=== PATIENT | male | born 1965 | race Caucasian/White ===

== ENCOUNTER 2020-10-09 10:48 | Inpatient (IN) ==
[2020-10-09] MEDS ORDERED: *HR* Midazolam HCl 2 MG/2 ML VIAL ONE (10:51)
[2020-10-09] MEDS ORDERED: *HR* FentaNYL (PF) 100 MCG/2 ML VIAL ONE (10:51)
[2020-10-09] MEDS ORDERED: *HR* Ticagrelor 90 MG TABLET PO ONE (10:52)
[2020-10-09] MEDS ORDERED: ISOVUE-370 200 ML INFUS..BTL ONE ×2 (10:52→11:57)
[2020-10-09] MEDS ORDERED: Nitroglycerin 1,000 MCG/5 ML VIAL IV ONE (10:52)
[2020-10-09] MEDS ORDERED: *HR* Heparin 5,000 UNIT/ML VIAL IVP ONE ×2 (10:52→23:30)
[2020-10-09] MEDS ORDERED: 0.9 % Sodium Chloride 2,000 ML ONE (10:52)
[2020-10-09] MEDS ORDERED: *HR* Heparin 10,000 UNIT/10 ML VIAL ONE (10:52)
[2020-10-09] MEDS ORDERED: Heparin 1,000 UNITS/500 mL 500 ML ONE (10:52)
[2020-10-09] MEDS ORDERED: Ipratropium/Albuterol Neb 3 ML IH ONE (10:56)
[2020-10-09] MEDS ORDERED: Tirofiban 12.5 MG/250ML 12.5 MG/250 ML BAG ONE (10:59)
[2020-10-09 11:18] LABS: Basophils % 0.3 %; Platelet Count 109 K/mcL (140-400); Red Blood Count 6.55 M/mcL (4.19-5.50); Red Cell Distribution Width 14.7 % (11.5-14.5)
[2020-10-09 11:20] LABS: Eosinophils # 0.1 K/mcL (0.0-0.6); Eosinophils % 0.6 %; Hemoglobin 19.9 g/dL (12.9-16.9); Immature Granulocytes % 0.6 % (0-4); Immature Platelets 8.3 % (1.1-6.1); Lymphocytes # 2.2 K/mcL (0.6-4.6); Lymphocytes % 15.4 %; Mean Corpuscular HGB Conc 34.2 g/dL (31.6-35.5); Mean Corpuscular Hemoglobin 30.4 pg (28.0-33.3); Mean Corpuscular Volume 88.9 fL (83.0-100.0); Mean Platelet Volume 11.6 fL (9.4-12.4); Monocytes # 1.4 K/mcL (0.0-1.3); Monocytes % 9.9 %; Neutrophils # 10.6 K/mcL (1.6-8.9); Segmented Neutrophils % 73.2 %; White Blood Count 14.5 K/mcL (4.3-11.1)
[2020-10-09 11:23] LABS: Hematocrit 58.2 % (37.5-50.1)
[2020-10-09] MEDS: Tirofiban 12.5 MG/250ML 12.5 MG/250 ML BAG IVC SCH ×2 (11:30→21:35)
[2020-10-09 11:38] LABS: BUN/Creatinine Ratio 12 (6-26); Blood Urea Nitrogen 15 mg/dL (6-20); Calcium 9.6 mg/dL (8.6-10.3); Carbon Dioxide 27 mEq/L (23-29); Chloride 96 mEq/L (98-107); Glucose 173 mg/dL (70-105); Magnesium 1.7 mg/dL (1.6-2.6); Osmolality,Calculated 281 (280-300); Potassium 3.4 mEq/L (3.5-5.1); Sodium 133 mEq/L (136-145); Troponin I 12.99 ng/mL (< 0.04); eGFR For African Americans > 60 (> 60); eGFR For Non-African Americans 59 (> 60)
[2020-10-09] MEDS ORDERED: Furosemide 40 MG/4 ML VIAL ONE (11:54)
[2020-10-09] MEDS ORDERED: Perflutren Lipid Microsphere 1.3 ML in 0.9 % Sodium Chloride 8.7 ML IVP PRN (12:19)
[2020-10-09 15:49] LABS: Adenovirus Not Detected (Not Detect); Coronavirus 229E Not Detected (Not Detect); Coronavirus HKU1 Not Detected (Not Detect); Coronavirus NL63 Not Detected (Not Detect); Coronavirus OC43 Not Detected (Not Detect); Human Metapneumovirus Not Detected (Not Detect); Human Rhinovirus/Enterovirus Not Detected (Not Detect); Influenza A Subtype 2009 H1 Not Detected (Not Detect); Influenza B Not Detected (Not Detect); Parainfluenza Virus 1 Not Detected (Not Detect); Parainfluenza Virus 2 Not Detected (Not Detect); Parainfluenza Virus 3 Not Detected (Not Detect); Parainfluenza Virus 4 Not Detected (Not Detect); SARS-CoV-2 Not Detected (Not Detect)
[2020-10-09 15:50] LABS: Bordetella Pertussis Not Detected (Not Detect); Chlamydophila pneumoniae Not Detected (Not Detect); Mycoplasma pneumoniae Not Detected (Not Detect); Respiratory Syncytial Virus Not Detected (Not Detect)
[2020-10-09] MEDS ORDERED: Dextrose Gel 15 GM/37.5 ML TUBE PO PRN ×2 (16:49)
[2020-10-09] MEDS ORDERED: *HR* Dextrose 50 % in Water (Vial) 50 ML VIAL IVP PRN (16:49)
[2020-10-09] MEDS ORDERED: D5% in Water 1,000 ML IVC PRN (16:49)
[2020-10-09 18:44] LABS: INR 1.2; Prothrombin Time 13.6 Seconds (9.4-12.1)
[2020-10-09 19:25] LABS: Estimated Average Glucose 134 mg/dl; Hemoglobin A1C 6.3 %
[2020-10-09] MEDS: Insulin LISPRO 300 UNITS/3 ML VIAL SUBQ SCH (20:15)
[2020-10-09] MEDS: *HR* Ticagrelor 90 MG TABLET PO SCH (20:15)
[2020-10-09] MEDS: lisinopriL 20 MG TABLET PO SCH (20:15)
[2020-10-09] MEDS ORDERED: *HR* Heparin 5,000 UNIT/ML VIAL IVP PRN ×2 (23:30)
[2020-10-10 00:37] LABS: Basophils # 0.1 K/mcL (0.0-0.2); Basophils % 0.3 %; Eosinophils # 0.1 K/mcL (0.0-0.6); Eosinophils % 0.3 %; Hematocrit 55.6 % (37.5-50.1); Hemoglobin 18.5 g/dL (12.9-16.9); Immature Granulocytes % 0.5 % (0-4); Lymphocytes # 3.1 K/mcL (0.6-4.6); Mean Corpuscular HGB Conc 33.3 g/dL (31.6-35.5); Mean Corpuscular Hemoglobin 29.5 pg (28.0-33.3); Mean Corpuscular Volume 88.5 fL (83.0-100.0); Mean Platelet Volume 11.4 fL (9.4-12.4); Monocytes # 1.8 K/mcL (0.0-1.3); Monocytes % 9.6 %; Neutrophils # 13.4 K/mcL (1.6-8.9); Platelet Count 139 K/mcL (140-400); Red Blood Count 6.28 M/mcL (4.19-5.50); Red Cell Distribution Width 14.1 % (11.5-14.5); Segmented Neutrophils % 72.3 %; White Blood Count 18.5 K/mcL (4.3-11.1)
[2020-10-10 00:44] LABS: Heparin anti-factor XA UFH < 0.04 IU/mL (0.30-0.70)
[2020-10-10 00:45] LABS: INR 1.2; Prothrombin Time 13.5 Seconds (9.4-12.1)
[2020-10-10] MEDS: Heparin 25,000UNIT/250ML 1/2NS 25,000 UNIT/250 ML IV.SOLN IVC SCH ×2 (00:46→22:56)
[2020-10-10 00:48] LABS: BUN/Creatinine Ratio 14 (6-26); Blood Urea Nitrogen 16 mg/dL (6-20); Carbon Dioxide 23 mEq/L (23-29); Chloride 97 mEq/L (98-107); Glucose 144 mg/dL (70-105); Osmolality,Calculated 278 (280-300); Potassium 3.6 mEq/L (3.5-5.1); Sodium 132 mEq/L (136-145); eGFR For African Americans > 60 (> 60); eGFR For Non-African Americans > 60 (> 60)
[2020-10-10] MEDS ORDERED: Morphine Sulfate 2 MG/ML SYRINGE IVP PRN (02:47)
[2020-10-10] MEDS: Isosorbide MONOnitrate (24 HR) 30 MG TAB.ER.24H PO SCH (03:09)
[2020-10-10] MEDS: Colchicine 0.6 MG TABLET PO SCH ×2 (03:10→08:13)
[2020-10-10 07:40] LABS: BUN/Creatinine Ratio 16 (6-26); Blood Urea Nitrogen 19 mg/dL (6-20); Calcium 8.8 mg/dL (8.6-10.3); Carbon Dioxide 22 mEq/L (23-29); Chloride 97 mEq/L (98-107); Glucose 180 mg/dL (70-105); Osmolality,Calculated 275 (280-300); Sodium 129 mEq/L (136-145); Troponin I 14.83 ng/mL (< 0.04); eGFR For African Americans > 60 (> 60); eGFR For Non-African Americans > 60 (> 60)
[2020-10-10] MEDS: Aspirin 81 MG TAB.CHEW PO SCH (08:06)
[2020-10-10] MEDS: lisinopriL 20 MG TABLET PO SCH (08:07)
[2020-10-10] MEDS: *HR* Ticagrelor 90 MG TABLET PO SCH ×2 (08:07→19:42)
[2020-10-10] MEDS: Insulin LISPRO 300 UNITS/3 ML VIAL SUBQ SCH ×4 (08:10→19:41)
[2020-10-10] MEDS ORDERED: carvediloL 25 MG TABLET PO SCH (09:00)
[2020-10-10] MEDS ORDERED: Perflutren Lipid Microsphere 1.3 ML in 0.9 % Sodium Chloride 8.7 ML IVP PRN (09:40)
[2020-10-10] MEDS ORDERED: 0.9 % Sodium Chloride 250 ML IVC ONE ×2 (10:02→14:44)
[2020-10-10] MEDS ORDERED: Aspirin 325 MG TABLET PO ONE ×2 (10:20→18:30)
[2020-10-10] MEDS: Ipratropium Neb 0.5 MG NEBULIZER IH SCH ×2 (16:49→21:15)
[2020-10-10] MEDS ORDERED: carvediloL 6.25 MG TABLET PO SCH (17:00)
[2020-10-10] MEDS ORDERED: Colchicine 0.6 MG TABLET PO SCH (21:00)
[2020-10-11] MEDS: Ipratropium Neb 0.5 MG NEBULIZER IH SCH ×4 (03:55→21:49)
[2020-10-11 05:17] LABS: Basophils % 0.2 %; Eosinophils # 0.1 K/mcL (0.0-0.6); Eosinophils % 0.5 %; Hematocrit 50.5 % (37.5-50.1); Immature Granulocytes % 0.8 % (0-4); Lymphocytes # 1.9 K/mcL (0.6-4.6); Lymphocytes % 10.5 %; Mean Corpuscular HGB Conc 33.7 g/dL (31.6-35.5); Mean Corpuscular Hemoglobin 29.8 pg (28.0-33.3); Mean Corpuscular Volume 88.6 fL (83.0-100.0); Mean Platelet Volume 11.2 fL (9.4-12.4); Monocytes # 1.4 K/mcL (0.0-1.3); Monocytes % 7.5 %; Neutrophils # 14.8 K/mcL (1.6-8.9); Platelet Count 131 K/mcL (140-400); Red Cell Distribution Width 13.8 % (11.5-14.5); Segmented Neutrophils % 80.5 %; White Blood Count 18.3 K/mcL (4.3-11.1)
[2020-10-11 05:37] LABS: BUN/Creatinine Ratio 19 (6-26); Blood Urea Nitrogen 20 mg/dL (6-20); Calcium 8.8 mg/dL (8.6-10.3); Carbon Dioxide 22 mEq/L (23-29); Chloride 98 mEq/L (98-107); Glucose 148 mg/dL (70-105); Osmolality,Calculated 279 (280-300); Potassium 3.7 mEq/L (3.5-5.1); Sodium 132 mEq/L (136-145); eGFR For African Americans > 60 (> 60); eGFR For Non-African Americans > 60 (> 60)
[2020-10-11] MEDS: Insulin LISPRO 300 UNITS/3 ML VIAL SUBQ SCH ×4 (07:09→20:53)
[2020-10-11] MEDS: Isosorbide MONOnitrate (24 HR) 30 MG TAB.ER.24H PO SCH (08:29)
[2020-10-11] MEDS: Aspirin 81 MG TAB.CHEW PO SCH (08:29)
[2020-10-11] MEDS: *HR* Ticagrelor 90 MG TABLET PO SCH ×2 (08:30→20:50)
[2020-10-11] MEDS: carvediloL 6.25 MG TABLET PO SCH ×2 (09:32→17:39)
[2020-10-11] MEDS: Colchicine 0.6 MG TABLET PO SCH ×2 (09:32→20:50)
[2020-10-11] MEDS ORDERED: Aspirin 325 MG TABLET PO ONE ×2 (11:10→21:00)
[2020-10-11] MEDS: Spironolactone 25 MG TABLET PO SCH (12:10)
[2020-10-11] MEDS: lisinopriL 10 MG TABLET PO SCH (12:10)
[2020-10-11] MEDS ORDERED: Colchicine 0.6 MG TABLET PO SCH (21:00)
[2020-10-12 03:30] LABS: Basophils % 0.2 %; Eosinophils # 0.2 K/mcL (0.0-0.6); Eosinophils % 1.3 %; Hematocrit 49.1 % (37.5-50.1); Hemoglobin 16.7 g/dL (12.9-16.9); Immature Granulocytes % 0.6 % (0-4); Lymphocytes % 12.8 %; Mean Corpuscular Hemoglobin 30.1 pg (28.0-33.3); Mean Corpuscular Volume 88.5 fL (83.0-100.0); Mean Platelet Volume 11.3 fL (9.4-12.4); Monocytes # 1.3 K/mcL (0.0-1.3); Monocytes % 7.9 %; Neutrophils # 12.4 K/mcL (1.6-8.9); Platelet Count 179 K/mcL (140-400); Red Blood Count 5.55 M/mcL (4.19-5.50); Red Cell Distribution Width 13.9 % (11.5-14.5); Segmented Neutrophils % 77.2 %
[2020-10-12] MEDS: Ipratropium Neb 0.5 MG NEBULIZER IH SCH ×4 (03:32→22:17)
[2020-10-12 03:44] LABS: BUN/Creatinine Ratio 19 (6-26); Blood Urea Nitrogen 21 mg/dL (6-20); Calcium 8.8 mg/dL (8.6-10.3); Carbon Dioxide 23 mEq/L (23-29); Chloride 100 mEq/L (98-107); Glucose 121 mg/dL (70-105); Osmolality,Calculated 278 (280-300); Potassium 3.8 mEq/L (3.5-5.1); Sodium 132 mEq/L (136-145); eGFR For African Americans > 60 (> 60); eGFR For Non-African Americans > 60 (> 60)
[2020-10-12] MEDS: lisinopriL 10 MG TABLET PO SCH (07:51)
[2020-10-12] MEDS: Aspirin 81 MG TAB.CHEW PO SCH (07:51)
[2020-10-12] MEDS: carvediloL 6.25 MG TABLET PO SCH ×2 (07:52→17:51)
[2020-10-12] MEDS: Spironolactone 25 MG TABLET PO SCH (07:52)
[2020-10-12] MEDS: Isosorbide MONOnitrate (24 HR) 30 MG TAB.ER.24H PO SCH (07:52)
[2020-10-12] MEDS: *HR* Ticagrelor 90 MG TABLET PO SCH ×2 (07:52→20:10)
[2020-10-12] MEDS: Colchicine 0.6 MG TABLET PO SCH ×2 (07:52→20:11)
[2020-10-12] MEDS: Insulin LISPRO 300 UNITS/3 ML VIAL SUBQ SCH ×4 (07:56→20:13)
[2020-10-12] MEDS ORDERED: Aspirin 325 MG TABLET PO ONE ×2 (10:43→21:00)
[2020-10-13] MEDS: Ipratropium Neb 0.5 MG NEBULIZER IH SCH ×2 (04:40→10:04)
[2020-10-13] MEDS: Insulin LISPRO 300 UNITS/3 ML VIAL SUBQ SCH (07:32)
[2020-10-13] MEDS: Isosorbide MONOnitrate (24 HR) 30 MG TAB.ER.24H PO SCH (07:32)
[2020-10-13] MEDS: Spironolactone 25 MG TABLET PO SCH (07:33)
[2020-10-13] MEDS: *HR* Ticagrelor 90 MG TABLET PO SCH (07:33)
[2020-10-13] MEDS: Colchicine 0.6 MG TABLET PO SCH (07:33)
[2020-10-13] MEDS: Aspirin 81 MG TAB.CHEW PO SCH (07:33)
[2020-10-13] MEDS: carvediloL 6.25 MG TABLET PO SCH (07:33)
[2020-10-13] MEDS: lisinopriL 10 MG TABLET PO SCH (07:33)
[2020-10-13 11:14] VITALS: BP 113/74
== END 2020-10-13 14:04 | disposition home or self-care (01) | DRG 174 ==
LOC: EMEROOARM 10:48 → 2NNU 11:13
PROVIDERS: ADMIT Internal Medicine Cardiovascular Disease; ATTEND Internal Medicine Cardiovascular Disease

== ENCOUNTER 2020-10-15 12:51 | Observation (INO) ==
[2020-10-15] MEDS ORDERED: 0.9 % Sodium Chloride 1,000 ML IVC ONE ×2 (13:01→15:02)
[2020-10-15] MEDS ORDERED: 0.9 % Sodium Chloride 1,000 ML ONE (13:02)
[2020-10-15 13:17] LABS: Basophils # 0.1 K/mcL (0.0-0.2); Basophils % 0.5 %; Eosinophils # 0.2 K/mcL (0.0-0.6); Eosinophils % 1.6 %; Hematocrit 51.6 % (37.5-50.1); Hemoglobin 16.9 g/dL (12.9-16.9); Lymphocytes # 1.7 K/mcL (0.6-4.6); Lymphocytes % 11.7 %; Mean Corpuscular HGB Conc 32.8 g/dL (31.6-35.5); Mean Corpuscular Hemoglobin 29.2 pg (28.0-33.3); Mean Corpuscular Volume 89.1 fL (83.0-100.0); Mean Platelet Volume 10.7 fL (9.4-12.4); Monocytes # 1.2 K/mcL (0.0-1.3); Monocytes % 7.9 %; Neutrophils # 11.3 K/mcL (1.6-8.9); Platelet Count 346 K/mcL (140-400); Red Blood Count 5.79 M/mcL (4.19-5.50); Red Cell Distribution Width 13.6 % (11.5-14.5); Segmented Neutrophils % 77.3 %; White Blood Count 14.6 K/mcL (4.3-11.1)
[2020-10-15 13:29] LABS: INR 1.5; Prothrombin Time 16.7 Seconds (9.4-12.1)
[2020-10-15 13:37] LABS: Calcium 8.9 mg/dL (8.6-10.3); Potassium 4.1 mEq/L (3.5-5.1)
[2020-10-15 13:42] LABS: Troponin I 4.24 ng/mL (< 0.04)
[2020-10-15] MEDS ORDERED: Melatonin 3 MG TABLET PO PRN (15:14)
[2020-10-15] MEDS ORDERED: Acetaminophen 325 MG TABLET PO PRN (15:14)
[2020-10-15] MEDS ORDERED: Ondansetron 4 MG/2 ML VIAL IVP PRN (15:14)
[2020-10-15] MEDS ORDERED: Dextrose Gel 15 GM/37.5 ML TUBE PO PRN ×2 (16:40)
[2020-10-15] MEDS ORDERED: D5% in Water 1,000 ML IVC PRN (16:40)
[2020-10-15] MEDS ORDERED: Nicotine 2 MG GUM BC PRN (16:40)
[2020-10-15] MEDS ORDERED: Nicotine 14 MG PATCH.TD24 TD PRN (16:40)
[2020-10-15] MEDS ORDERED: *HR* Dextrose 50 % in Water (Vial) 50 ML VIAL IVP PRN (16:40)
[2020-10-15] MEDS: Insulin LISPRO 300 UNITS/3 ML VIAL SUBQ SCH ×2 (19:31→21:27)
[2020-10-15] MEDS: *HR* Ticagrelor 90 MG TABLET PO SCH (21:27)
[2020-10-16 01:29] LABS: Bilirubin,Urine Negative (Negative); Blood,Urine Negative (Negative); Clarity,Urine Clear (Clear); Color,Urine Light-Yellow (Yellow); Glucose,Urine (UA) Normal (Normal); Ketones,Urine Negative (Negative); Leukocyte Esterase,Urine Negative (Negative); Nitrite,Urine Negative (Negative); Protein,Urine Negative (Neg-Trace); Specific Gravity,Urine 1.014 (1.010-1.025); Urobilinogen,Urine Normal (Normal)
[2020-10-16 04:54] LABS: Hematocrit 48.3 % (37.5-50.1); Hemoglobin 16.4 g/dL (12.9-16.9); Mean Corpuscular Hemoglobin 29.8 pg (28.0-33.3); Mean Corpuscular Volume 87.8 fL (83.0-100.0); Mean Platelet Volume 10.8 fL (9.4-12.4); Platelet Count 320 K/mcL (140-400); Red Cell Distribution Width 13.5 % (11.5-14.5); White Blood Count 13.5 K/mcL (4.3-11.1)
[2020-10-16 05:02] LABS: INR 1.4; Prothrombin Time 15.5 Seconds (9.4-12.1)
[2020-10-16 05:16] LABS: BUN/Creatinine Ratio 18 (6-26); Blood Urea Nitrogen 18 mg/dL (6-20); Calcium 8.8 mg/dL (8.6-10.3); Carbon Dioxide 22 mEq/L (23-29); Chloride 101 mEq/L (98-107); Glucose 121 mg/dL (70-105); Magnesium 1.9 mg/dL (1.6-2.6); Osmolality,Calculated 277 (280-300); Phosphorous 3.2 mg/dL (2.7-4.5); Potassium 3.8 mEq/L (3.5-5.1); Sodium 132 mEq/L (136-145); eGFR For African Americans > 60 (> 60); eGFR For Non-African Americans > 60 (> 60)
[2020-10-16] MEDS: *HR* Enoxaparin 40 MG/0.4 ML SYRINGE SQ SCH (06:17)
[2020-10-16] MEDS: Insulin LISPRO 300 UNITS/3 ML VIAL SUBQ SCH ×4 (07:52→21:07)
[2020-10-16] MEDS: *HR* Ticagrelor 90 MG TABLET PO SCH ×2 (07:52→21:12)
[2020-10-16] MEDS: Aspirin Enteric Coated 81 MG Tablet PO SCH (07:53)
[2020-10-16] MEDS: carvediloL 6.25 MG TABLET PO SCH ×2 (13:43→21:12)
[2020-10-17 04:23] LABS: Hematocrit 48.5 % (37.5-50.1); Hemoglobin 16.3 g/dL (12.9-16.9); Mean Corpuscular HGB Conc 33.6 g/dL (31.6-35.5); Mean Corpuscular Hemoglobin 29.4 pg (28.0-33.3); Mean Corpuscular Volume 87.4 fL (83.0-100.0); Mean Platelet Volume 10.7 fL (9.4-12.4); Platelet Count 335 K/mcL (140-400); Red Blood Count 5.55 M/mcL (4.19-5.50); Red Cell Distribution Width 13.4 % (11.5-14.5); White Blood Count 12.1 K/mcL (4.3-11.1)
[2020-10-17 04:47] LABS: BUN/Creatinine Ratio 18 (6-26); Blood Urea Nitrogen 18 mg/dL (6-20); Calcium 9.1 mg/dL (8.6-10.3); Carbon Dioxide 21 mEq/L (23-29); Chloride 99 mEq/L (98-107); Glucose 110 mg/dL (70-105); Osmolality,Calculated 279 (280-300); Potassium 3.6 mEq/L (3.5-5.1); Sodium 133 mEq/L (136-145); eGFR For African Americans > 60 (> 60); eGFR For Non-African Americans > 60 (> 60)
[2020-10-17] MEDS: *HR* Enoxaparin 40 MG/0.4 ML SYRINGE SQ SCH (05:27)
[2020-10-17] MEDS: Insulin LISPRO 300 UNITS/3 ML VIAL SUBQ SCH ×2 (07:16→12:01)
[2020-10-17] MEDS: *HR* Ticagrelor 90 MG TABLET PO SCH (08:42)
[2020-10-17] MEDS: carvediloL 6.25 MG TABLET PO SCH (08:43)
[2020-10-17] MEDS: Aspirin Enteric Coated 81 MG Tablet PO SCH (08:43)
[2020-10-17] MEDS ORDERED: ARIPiprazole 10 MG TABLET PO SCH (09:00)
[2020-10-17] MEDS ORDERED: lisinopriL 10 MG TABLET PO SCH (09:00)
[2020-10-17 11:46] VITALS: BP 122/98
== END 2020-10-17 14:25 | disposition home or self-care (01) ==
LOC: 2NENU 12:51 → EMEROOARM 12:51 → SUATTDRO 14:59 → 2NENU 17:00
PROVIDERS: ADMIT Internal Medicine; ATTEND Internal Medicine

== ENCOUNTER 2020-12-05 13:33 | Inpatient (IN) ==
[2020-12-05] MEDS ORDERED: Naloxone 0.4 MG/ML INJ IVP PRN (16:13)
[2020-12-05] MEDS ORDERED: Ondansetron ODT 4 MG TAB.RAPDIS SL PRN (16:13)
[2020-12-05] MEDS ORDERED: Mag Hydrox/Al Hydrox/Simeth 30 ML UDC PO PRN (16:13)
[2020-12-05] MEDS ORDERED: MOM Conc 10 ML UD.LIQ PO PRN (16:13)
[2020-12-05] MEDS ORDERED: Dextrose Gel 15 GM/37.5 ML TUBE PO PRN ×2 (16:17)
[2020-12-05] MEDS ORDERED: *HR* Dextrose 50 % in Water (Vial) 50 ML VIAL IVP PRN (16:17)
[2020-12-05] MEDS ORDERED: D5% in Water 1,000 ML IVC PRN (16:17)
[2020-12-05] MEDS ORDERED: Perflutren Lipid Microsphere 1.3 ML in 0.9 % Sodium Chloride 8.7 ML IVP PRN ×2 (16:20→16:48)
[2020-12-05] MEDS: Insulin LISPRO 300 UNITS/3 ML VIAL SUBQ SCH ×3 (18:21→22:31)
[2020-12-05] MEDS ORDERED: levoFLOXacin 750 MG/150 ML 750 MG/150 ML BAG IVPB SCH (19:00)
[2020-12-05 19:30] LABS: Adenovirus Not Detected (Not Detect); Coronavirus 229E Not Detected (Not Detect); Coronavirus HKU1 Not Detected (Not Detect); Coronavirus NL63 Not Detected (Not Detect); Coronavirus OC43 Not Detected (Not Detect); Human Metapneumovirus Not Detected (Not Detect); Human Rhinovirus/Enterovirus Not Detected (Not Detect); SARS-CoV-2 Not Detected (Not Detect)
[2020-12-05 19:31] LABS: Bordetella Pertussis Not Detected (Not Detect); Chlamydophila pneumoniae Not Detected (Not Detect); Influenza A Subtype 2009 H1 Not Detected (Not Detect); Influenza B Not Detected (Not Detect); Mycoplasma pneumoniae Not Detected (Not Detect); Parainfluenza Virus 1 Not Detected (Not Detect); Parainfluenza Virus 2 Not Detected (Not Detect); Parainfluenza Virus 3 Not Detected (Not Detect); Parainfluenza Virus 4 Not Detected (Not Detect); Respiratory Syncytial Virus Not Detected (Not Detect)
[2020-12-05] MEDS ORDERED: *HR* Ticagrelor 90 MG TABLET PO SCH (21:00)
[2020-12-05] MEDS: *HR* Ticagrelor 90 MG TABLET PO SCH (21:15)
[2020-12-05] MEDS: Acetaminophen 325 MG TABLET PO PRN (22:38)
[2020-12-06] MEDS: Insulin LISPRO 300 UNITS/3 ML VIAL SUBQ SCH ×4 (05:42→19:38)
[2020-12-06] MEDS: Acetaminophen 325 MG TABLET PO PRN (05:46)
[2020-12-06 06:07] LABS: Hematocrit 48.9 % (37.5-50.1); Hemoglobin 15.6 g/dL (12.9-16.9); Mean Corpuscular HGB Conc 31.9 g/dL (31.6-35.5); Mean Corpuscular Hemoglobin 28.2 pg (28.0-33.3); Mean Corpuscular Volume 88.3 fL (83.0-100.0); Mean Platelet Volume 10.6 fL (9.4-12.4); Platelet Count 230 K/mcL (140-400); Red Blood Count 5.54 M/mcL (4.19-5.50); White Blood Count 12.7 K/mcL (4.3-11.1)
[2020-12-06 06:29] LABS: BUN/Creatinine Ratio 12 (6-26); Blood Urea Nitrogen 13 mg/dL (6-20); Calcium 8.7 mg/dL (8.6-10.3); Carbon Dioxide 23 mEq/L (23-29); Chloride 100 mEq/L (98-107); Glucose 156 mg/dL (70-105); Magnesium 1.7 mg/dL (1.6-2.6); Osmolality,Calculated 279 (280-300); Potassium 3.5 mEq/L (3.5-5.1); Sodium 133 mEq/L (136-145); eGFR For African Americans > 60 (> 60); eGFR For Non-African Americans > 60 (> 60)
[2020-12-06] MEDS ORDERED: *HR* Enoxaparin 40 MG/0.4 ML SYRINGE SQ SCH (07:00)
[2020-12-06] MEDS: lisinopriL 10 MG TABLET PO SCH (07:50)
[2020-12-06] MEDS: Isosorbide MONOnitrate (24 HR) 30 MG TAB.ER.24H PO SCH (07:51)
[2020-12-06] MEDS: ARIPiprazole 10 MG TABLET PO SCH (07:51)
[2020-12-06] MEDS: *HR* Ticagrelor 90 MG TABLET PO SCH (07:51)
[2020-12-06] MEDS ORDERED: carvediloL 6.25 MG TABLET PO SCH (08:00)
[2020-12-06] MEDS ORDERED: levoFLOXacin 750 MG/150 ML 750 MG/150 ML BAG IVPB SCH (09:00)
[2020-12-06] MEDS ORDERED: Aspirin Enteric Coated 81 MG Tablet PO SCH (09:00)
[2020-12-06] MEDS ORDERED: Colchicine 0.6 MG TABLET PO ONE ×2 (10:21→15:23)
[2020-12-06] MEDS ORDERED: Aspirin 325 MG TABLET PO SCH (10:30)
[2020-12-06] MEDS ORDERED: Colchicine 0.6 MG TABLET PO SCH (10:30)
[2020-12-06 10:42] LABS: C-Reactive Protein 176 mg/L (Less than 10)
[2020-12-06] MEDS: Spironolactone 25 MG TABLET PO SCH (12:53)
[2020-12-06] MEDS: Azithromycin 250 MG TABLET PO SCH (15:02)
[2020-12-06] MEDS: carvediloL 6.25 MG TABLET PO SCH (17:49)
[2020-12-06] MEDS ORDERED: MethylPREDNISolone 40 MG/ML VIAL IVP SCH (17:54)
[2020-12-06] MEDS: Aspirin 325 MG TABLET PO SCH (19:40)
[2020-12-06] MEDS: Ipratropium 1 PUFF INHALER IH SCH ×2 (20:03→23:16)
[2020-12-06] MEDS ORDERED: *HR* Ticagrelor 90 MG TABLET PO SCH (21:00)
[2020-12-07] MEDS: Ipratropium 1 PUFF INHALER IH SCH ×6 (03:47→23:16)
[2020-12-07] MEDS: Insulin LISPRO 300 UNITS/3 ML VIAL SUBQ SCH ×4 (05:23→21:38)
[2020-12-07] MEDS: Acetaminophen 325 MG TABLET PO PRN (06:07)
[2020-12-07 06:13] LABS: Hematocrit 48.2 % (37.5-50.1); Mean Corpuscular HGB Conc 33.2 g/dL (31.6-35.5); Mean Corpuscular Hemoglobin 28.6 pg (28.0-33.3); Mean Corpuscular Volume 86.2 fL (83.0-100.0); Mean Platelet Volume 10.8 fL (9.4-12.4); Platelet Count 259 K/mcL (140-400); Red Blood Count 5.59 M/mcL (4.19-5.50); Red Cell Distribution Width 13.9 % (11.5-14.5); White Blood Count 10.8 K/mcL (4.3-11.1)
[2020-12-07 08:00] LABS: BUN/Creatinine Ratio 15 (6-26); Blood Urea Nitrogen 14 mg/dL (6-20); Calcium 8.7 mg/dL (8.6-10.3); Carbon Dioxide 21 mEq/L (23-29); Chloride 100 mEq/L (98-107); Glucose 109 mg/dL (70-105); Osmolality,Calculated 281 (280-300); Potassium 3.8 mEq/L (3.5-5.1); Sodium 135 mEq/L (136-145); eGFR For African Americans > 60 (> 60); eGFR For Non-African Americans > 60 (> 60)
[2020-12-07] MEDS: lisinopriL 10 MG TABLET PO SCH (08:04)
[2020-12-07] MEDS: Azithromycin 250 MG TABLET PO SCH (08:04)
[2020-12-07] MEDS: carvediloL 6.25 MG TABLET PO SCH ×2 (08:04→16:25)
[2020-12-07] MEDS: ARIPiprazole 10 MG TABLET PO SCH (08:04)
[2020-12-07] MEDS: Spironolactone 25 MG TABLET PO SCH (08:04)
[2020-12-07] MEDS: Aspirin 325 MG TABLET PO SCH ×3 (08:04→21:39)
[2020-12-07] MEDS: Isosorbide MONOnitrate (24 HR) 30 MG TAB.ER.24H PO SCH (08:04)
[2020-12-07] MEDS: Colchicine 0.6 MG TABLET PO SCH ×2 (08:04→21:40)
[2020-12-07] MEDS ORDERED: Colchicine 0.6 MG TABLET PO SCH (10:30)
[2020-12-07] MEDS ORDERED: Insulin LISPRO 300 UNITS/3 ML VIAL SUBQ SCH (16:30)
[2020-12-08] MEDS: Ipratropium 1 PUFF INHALER IH SCH ×6 (03:18→23:05)
[2020-12-08] MEDS: carvediloL 6.25 MG TABLET PO SCH ×2 (05:54→17:01)
[2020-12-08] MEDS ORDERED: Insulin LISPRO 300 UNITS/3 ML VIAL SUBQ SCH ×2 (06:00→12:00)
[2020-12-08] MEDS ORDERED: *HR* FentaNYL (PF) 100 MCG/2 ML VIAL IVP PRN (06:55)
[2020-12-08] MEDS ORDERED: Ondansetron 4 MG/2 ML VIAL IVP PRN (06:55)
[2020-12-08] MEDS ORDERED: *HR* OxyCODONE Immed Rel 5 MG TABLET PO PRN (06:55)
[2020-12-08] MEDS ORDERED: *HR* FentaNYL (PF) 250 MCG/5 ML VIAL ONE (06:59)
[2020-12-08] MEDS ORDERED: *HR* Rocuronium Bromide 50 MG/5 ML VIAL ONE (06:59)
[2020-12-08] MEDS ORDERED: *HR* Etomidate 20 MG/10 ML AMPUL IVP ONE (06:59)
[2020-12-08] MEDS ORDERED: Ringers Solution, Lactated 1,000 ML IVC SCH (07:00)
[2020-12-08] MEDS ORDERED: Lidocaine 1% 20 ML MDV ONE (07:05)
[2020-12-08] MEDS: Azithromycin 250 MG TABLET PO SCH (07:23)
[2020-12-08] MEDS ORDERED: Sugammadex Sodium 200 MG/2 ML VIAL IV ONE (08:14)
[2020-12-08] MEDS ORDERED: *HR* Dextrose 50 % in Water (Vial) 50 ML VIAL IVP PRN (10:20)
[2020-12-08] MEDS ORDERED: Dextrose Gel 15 GM/37.5 ML TUBE PO PRN ×2 (10:20)
[2020-12-08] MEDS ORDERED: Naloxone 0.4 MG/ML INJ IVP PRN (10:20)
[2020-12-08] MEDS ORDERED: D5% in Water 1,000 ML IVC PRN ×2 (10:20→10:44)
[2020-12-08] MEDS ORDERED: MOM Conc 10 ML UD.LIQ PO PRN (10:20)
[2020-12-08] MEDS ORDERED: Mag Hydrox/Al Hydrox/Simeth 30 ML UDC PO PRN (10:20)
[2020-12-08] MEDS ORDERED: Acetaminophen 325 MG TABLET PO PRN (10:20)
[2020-12-08] MEDS ORDERED: Ondansetron ODT 4 MG TAB.RAPDIS SL PRN (10:20)
[2020-12-08] MEDS ORDERED: Perflutren Lipid Microsphere 1.3 ML in 0.9 % Sodium Chloride 8.7 ML IVP PRN (10:20)
[2020-12-08] MEDS: 0.9 % Sodium Chloride 1,000 ML IVC SCH (10:48)
[2020-12-08] MEDS: Isosorbide MONOnitrate (24 HR) 30 MG TAB.ER.24H PO SCH (11:15)
[2020-12-08] MEDS: Sennosides/Docusate Sodium TABLET PO SCH ×2 (11:15→20:02)
[2020-12-08] MEDS: Insulin LISPRO 300 UNITS/3 ML VIAL SUBQ SCH ×2 (11:53→17:01)
[2020-12-08] MEDS ORDERED: Azithromycin 250 MG TABLET PO SCH (13:45)
[2020-12-08] MEDS: Aspirin 325 MG TABLET PO SCH ×2 (14:43→20:02)
[2020-12-08] MEDS: Colchicine 0.6 MG TABLET PO SCH (20:02)
[2020-12-09] MEDS: 0.9 % Sodium Chloride 1,000 ML IVC SCH (00:32)
[2020-12-09 03:24] LABS: Hematocrit 47.8 % (37.5-50.1); Red Blood Count 5.58 M/mcL (4.19-5.50)
[2020-12-09 03:25] LABS: Mean Corpuscular HGB Conc 33.5 g/dL (31.6-35.5); Mean Corpuscular Hemoglobin 28.7 pg (28.0-33.3); Mean Corpuscular Volume 85.7 fL (83.0-100.0); Mean Platelet Volume 10.2 fL (9.4-12.4); Platelet Count 323 K/mcL (140-400); Red Cell Distribution Width 13.6 % (11.5-14.5)
[2020-12-09 03:29] LABS: White Blood Count 16.6 K/mcL (4.3-11.1)
[2020-12-09] MEDS: Ipratropium 1 PUFF INHALER IH SCH ×6 (03:35→23:25)
[2020-12-09 03:49] LABS: BUN/Creatinine Ratio 19 (6-26); Blood Urea Nitrogen 17 mg/dL (6-20); Calcium 8.7 mg/dL (8.6-10.3); Carbon Dioxide 23 mEq/L (23-29); Chloride 103 mEq/L (98-107); Glucose 138 mg/dL (70-105); Osmolality,Calculated 284 (280-300); Potassium 4.3 mEq/L (3.5-5.1); Sodium 135 mEq/L (136-145); eGFR For African Americans > 60 (> 60); eGFR For Non-African Americans > 60 (> 60)
[2020-12-09] MEDS: Isosorbide MONOnitrate (24 HR) 30 MG TAB.ER.24H PO SCH (08:42)
[2020-12-09] MEDS: lisinopriL 10 MG TABLET PO SCH (08:42)
[2020-12-09] MEDS: Aspirin 325 MG TABLET PO SCH ×3 (08:42→20:45)
[2020-12-09] MEDS: Spironolactone 25 MG TABLET PO SCH (08:42)
[2020-12-09] MEDS: *HR* HYDROcodone/Acet 5/325 mg TABLET PO PRN ×2 (08:42→14:36)
[2020-12-09] MEDS: ARIPiprazole 10 MG TABLET PO SCH (08:42)
[2020-12-09] MEDS: Colchicine 0.6 MG TABLET PO SCH ×2 (08:43→20:45)
[2020-12-09] MEDS: Sennosides/Docusate Sodium TABLET PO SCH ×2 (08:43→20:45)
[2020-12-09] MEDS: carvediloL 6.25 MG TABLET PO SCH ×2 (08:43→17:16)
[2020-12-09] MEDS: Insulin LISPRO 300 UNITS/3 ML VIAL SUBQ SCH ×3 (08:44→17:16)
[2020-12-09] MEDS: lisinopriL 5 MG TABLET PO SCH (17:16)
[2020-12-09] MEDS: *HR* Ticagrelor 90 MG TABLET PO SCH (20:45)
[2020-12-10 03:11] LABS: Hematocrit 50.6 % (37.5-50.1); Mean Corpuscular HGB Conc 31.6 g/dL (31.6-35.5); Mean Corpuscular Hemoglobin 27.5 pg (28.0-33.3); Mean Corpuscular Volume 87.1 fL (83.0-100.0); Mean Platelet Volume 10.3 fL (9.4-12.4); Platelet Count 332 K/mcL (140-400); Red Blood Count 5.81 M/mcL (4.19-5.50); White Blood Count 12.8 K/mcL (4.3-11.1)
[2020-12-10 03:24] LABS: BUN/Creatinine Ratio 21 (6-26); Blood Urea Nitrogen 20 mg/dL (6-20); Calcium 8.6 mg/dL (8.6-10.3); Carbon Dioxide 22 mEq/L (23-29); Chloride 102 mEq/L (98-107); Glucose 122 mg/dL (70-105); Magnesium 1.8 mg/dL (1.6-2.6); Osmolality,Calculated 284 (280-300); Potassium 4.2 mEq/L (3.5-5.1); Sodium 135 mEq/L (136-145); eGFR For African Americans > 60 (> 60); eGFR For Non-African Americans > 60 (> 60)
[2020-12-10] MEDS: Ipratropium 1 PUFF INHALER IH SCH ×6 (04:14→23:04)
[2020-12-10] MEDS: carvediloL 6.25 MG TABLET PO SCH ×2 (07:36→17:01)
[2020-12-10] MEDS: lisinopriL 10 MG TABLET PO SCH (07:36)
[2020-12-10] MEDS: Sennosides/Docusate Sodium TABLET PO SCH ×2 (07:36→20:25)
[2020-12-10] MEDS: Colchicine 0.6 MG TABLET PO SCH ×2 (07:36→20:25)
[2020-12-10] MEDS: Isosorbide MONOnitrate (24 HR) 30 MG TAB.ER.24H PO SCH (07:37)
[2020-12-10] MEDS: Aspirin 325 MG TABLET PO SCH ×3 (07:37→20:26)
[2020-12-10] MEDS: *HR* Ticagrelor 90 MG TABLET PO SCH ×2 (07:37→20:25)
[2020-12-10] MEDS: *HR* HYDROcodone/Acet 5/325 mg TABLET PO PRN ×2 (07:37→13:58)
[2020-12-10] MEDS: Spironolactone 25 MG TABLET PO SCH (07:37)
[2020-12-10] MEDS: ARIPiprazole 10 MG TABLET PO SCH (07:37)
[2020-12-10] MEDS: Insulin LISPRO 300 UNITS/3 ML VIAL SUBQ SCH ×3 (07:38→16:33)
[2020-12-10] MEDS: lisinopriL 5 MG TABLET PO SCH (17:01)
[2020-12-11 02:35] LABS: Hematocrit 50.9 % (37.5-50.1); Mean Corpuscular HGB Conc 33.4 g/dL (31.6-35.5); Mean Corpuscular Hemoglobin 28.4 pg (28.0-33.3); Platelet Count 359 K/mcL (140-400); Red Blood Count 5.99 M/mcL (4.19-5.50); Red Cell Distribution Width 13.8 % (11.5-14.5); White Blood Count 11.3 K/mcL (4.3-11.1)
[2020-12-11 02:55] LABS: BUN/Creatinine Ratio 20 (6-26); Blood Urea Nitrogen 18 mg/dL (6-20); Calcium 9.1 mg/dL (8.6-10.3); Carbon Dioxide 22 mEq/L (23-29); Chloride 101 mEq/L (98-107); Glucose 101 mg/dL (70-105); Osmolality,Calculated 280 (280-300); Potassium 3.9 mEq/L (3.5-5.1); Sodium 134 mEq/L (136-145); eGFR For African Americans > 60 (> 60); eGFR For Non-African Americans > 60 (> 60)
[2020-12-11] MEDS: Ipratropium 1 PUFF INHALER IH SCH ×6 (04:12→23:12)
[2020-12-11] MEDS: Spironolactone 25 MG TABLET PO SCH (09:44)
[2020-12-11] MEDS: Colchicine 0.6 MG TABLET PO SCH ×2 (09:44→19:47)
[2020-12-11] MEDS: *HR* Ticagrelor 90 MG TABLET PO SCH ×2 (09:44→19:47)
[2020-12-11] MEDS: Aspirin 325 MG TABLET PO SCH ×3 (09:44→19:47)
[2020-12-11] MEDS: Sennosides/Docusate Sodium TABLET PO SCH ×2 (09:45→19:48)
[2020-12-11] MEDS: carvediloL 6.25 MG TABLET PO SCH ×2 (09:45→18:00)
[2020-12-11] MEDS: ARIPiprazole 10 MG TABLET PO SCH (09:45)
[2020-12-11] MEDS: *HR* HYDROcodone/Acet 5/325 mg TABLET PO PRN ×3 (09:45→19:47)
[2020-12-11] MEDS: lisinopriL 10 MG TABLET PO SCH (09:45)
[2020-12-11] MEDS: Isosorbide MONOnitrate (24 HR) 30 MG TAB.ER.24H PO SCH (09:45)
[2020-12-11] MEDS: Insulin LISPRO 300 UNITS/3 ML VIAL SUBQ SCH ×3 (09:46→18:01)
[2020-12-11] MEDS: lisinopriL 5 MG TABLET PO SCH (18:00)
[2020-12-12 03:37] LABS: Hematocrit 51.1 % (37.5-50.1); Mean Corpuscular HGB Conc 33.3 g/dL (31.6-35.5); Mean Corpuscular Hemoglobin 28.6 pg (28.0-33.3); Mean Corpuscular Volume 85.9 fL (83.0-100.0); Platelet Count 360 K/mcL (140-400); Red Blood Count 5.95 M/mcL (4.19-5.50); Red Cell Distribution Width 13.9 % (11.5-14.5); White Blood Count 10.8 K/mcL (4.3-11.1)
[2020-12-12] MEDS: Ipratropium 1 PUFF INHALER IH SCH ×4 (03:48→16:13)
[2020-12-12 04:02] LABS: BUN/Creatinine Ratio 20 (6-26); Blood Urea Nitrogen 19 mg/dL (6-20); Calcium 9.1 mg/dL (8.6-10.3); Carbon Dioxide 20 mEq/L (23-29); Chloride 102 mEq/L (98-107); Glucose 121 mg/dL (70-105); Osmolality,Calculated 280 (280-300); Sodium 133 mEq/L (136-145); eGFR For African Americans > 60 (> 60); eGFR For Non-African Americans > 60 (> 60)
[2020-12-12] MEDS: Insulin LISPRO 300 UNITS/3 ML VIAL SUBQ SCH ×3 (07:42→16:42)
[2020-12-12] MEDS: Aspirin 325 MG TABLET PO SCH ×2 (07:46→13:55)
[2020-12-12] MEDS: ARIPiprazole 10 MG TABLET PO SCH (07:47)
[2020-12-12] MEDS: Sennosides/Docusate Sodium TABLET PO SCH (07:47)
[2020-12-12] MEDS: carvediloL 6.25 MG TABLET PO SCH ×2 (07:47→16:44)
[2020-12-12] MEDS: Isosorbide MONOnitrate (24 HR) 30 MG TAB.ER.24H PO SCH (07:47)
[2020-12-12] MEDS: *HR* Ticagrelor 90 MG TABLET PO SCH (07:47)
[2020-12-12] MEDS: lisinopriL 10 MG TABLET PO SCH (07:47)
[2020-12-12] MEDS: Colchicine 0.6 MG TABLET PO SCH (07:47)
[2020-12-12] MEDS: Spironolactone 25 MG TABLET PO SCH (07:47)
[2020-12-12 15:54] VITALS: BP 110/86; PULSE 91; TEMP 99.1; O2SAT 94
[2020-12-12] MEDS: lisinopriL 5 MG TABLET PO SCH (16:44)
== END 2020-12-12 17:39 | disposition home or self-care (01) | DRG 180 ==
LOC: 2NENU → SUATTDRO 16:00 → 2NENU 12-08 08:39 → 2NNU 12-08 09:27
PROVIDERS: ADMIT Internal Medicine; ATTEND Internal Medicine

== ENCOUNTER 2020-12-17 16:13 | Observation (INO) ==
[2020-12-17] MEDS ORDERED: Melatonin 3 MG TABLET PO PRN (16:33)
[2020-12-17] MEDS ORDERED: Ondansetron 4 MG/2 ML VIAL IVP PRN (16:33)
[2020-12-17] MEDS ORDERED: Naloxone 0.4 MG/ML INJ IVP PRN (16:33)
[2020-12-17] MEDS ORDERED: Acetaminophen 325 MG TABLET PO PRN (16:33)
[2020-12-17] MEDS ORDERED: Piperacillin/Tazobactam 3.375 GM in 0.9 % Sodium Chloride Mini Bag 100 ML IVPB ONE (17:06)
[2020-12-17] MEDS ORDERED: Perflutren Lipid Microsphere 1.3 ML in 0.9 % Sodium Chloride 8.7 ML IVP PRN (17:09)
[2020-12-17 17:24] LABS: INR 1.4; Prothrombin Time 15.6 Seconds (9.4-12.1)
[2020-12-17 17:36] LABS: Alanine Aminotransferase 14 Units/L (7-52); Albumin 3.4 g/dL (3.5-5.7); Albumin/Globulin Ratio 0.8 (1.1-2.2); Alkaline Phosphatase 89 Units/L (34-104); Aspartate Amino Transferase 8 Units/L (13-39); BUN/Creatinine Ratio 15 (6-26); Bilirubin,Direct 0.4 mg/dL (0.0-0.2); Bilirubin,Indirect 0.7 mg/dL (0.0-1.0); Bilirubin,Total 1.1 mg/dL (0.3-1.0); Blood Urea Nitrogen 16 mg/dL (6-20); C-Reactive Protein > 300 mg/L (Less than 10); Calcium 9.2 mg/dL (8.6-10.3); Carbon Dioxide 25 mEq/L (23-29); Chloride 96 mEq/L (98-107); Globulin 4.1 g/dL (2.4-3.5); Glucose 146 mg/dL (70-105); Magnesium 1.9 mg/dL (1.6-2.6); Osmolality,Calculated 282 (280-300); Potassium 4.2 mEq/L (3.5-5.1); Sodium 134 mEq/L (136-145); Total Protein 7.5 g/dL (6.4-8.9); Troponin I 0.04 ng/mL (< 0.04); eGFR For African Americans > 60 (> 60); eGFR For Non-African Americans > 60 (> 60)
[2020-12-17 18:24] LABS: Basophils # 0.1 K/mcL (0.0-0.2); Basophils % 0.2 %; Eosinophils # 0.1 K/mcL (0.0-0.6); Eosinophils % 0.3 %; Hemoglobin 16.6 g/dL (12.9-16.9); Immature Granulocytes % 0.5 % (0-4); Lymphocytes # 1.9 K/mcL (0.6-4.6); Lymphocytes % 7.5 %; Mean Corpuscular HGB Conc 32.5 g/dL (31.6-35.5); Mean Corpuscular Hemoglobin 27.7 pg (28.0-33.3); Mean Corpuscular Volume 85.1 fL (83.0-100.0); Mean Platelet Volume 10.3 fL (9.4-12.4); Monocytes # 1.8 K/mcL (0.0-1.3); Monocytes % 7.1 %; Neutrophils # 20.9 K/mcL (1.6-8.9); Platelet Count 325 K/mcL (140-400); Red Blood Count 5.99 M/mcL (4.19-5.50); Red Cell Distribution Width 14.3 % (11.5-14.5); Segmented Neutrophils % 84.4 %; White Blood Count 24.7 K/mcL (4.3-11.1)
[2020-12-17] MEDS: Colchicine 0.6 MG TABLET PO SCH (20:00)
[2020-12-17] MEDS: Aspirin 325 MG TABLET PO SCH (20:00)
[2020-12-17] MEDS: Vancomycin 1,250 MG/262.5 ML IV.SOLN IVPB SCH (21:57)
[2020-12-18 04:05] LABS: Red Cell Distribution Width 14.4 % (11.5-14.5)
[2020-12-18 04:06] LABS: Hematocrit 47.6 % (37.5-50.1); Hemoglobin 15.9 g/dL (12.9-16.9); Mean Corpuscular HGB Conc 33.4 g/dL (31.6-35.5); Mean Corpuscular Hemoglobin 28.3 pg (28.0-33.3); Mean Corpuscular Volume 84.7 fL (83.0-100.0); Mean Platelet Volume 10.2 fL (9.4-12.4); Platelet Count 311 K/mcL (140-400); Red Blood Count 5.62 M/mcL (4.19-5.50); White Blood Count 25.5 K/mcL (4.3-11.1)
[2020-12-18 04:20] LABS: BUN/Creatinine Ratio 16 (6-26); Blood Urea Nitrogen 19 mg/dL (6-20); Calcium 8.6 mg/dL (8.6-10.3); Carbon Dioxide 28 mEq/L (23-29); Chloride 95 mEq/L (98-107); Glucose 158 mg/dL (70-105); Osmolality,Calculated 278 (280-300); Potassium 4.3 mEq/L (3.5-5.1); Sodium 131 mEq/L (136-145); eGFR For African Americans > 60 (> 60); eGFR For Non-African Americans > 60 (> 60)
[2020-12-18 04:23] LABS: Troponin I 0.05 ng/mL (< 0.04)
[2020-12-18] MEDS: Piperacillin/Tazobactam 3.375 GM in 0.9 % Sodium Chloride Mini Bag 100 ML IVPB SCH ×2 (07:40→16:15)
[2020-12-18] MEDS: Colchicine 0.6 MG TABLET PO SCH ×2 (07:41→20:34)
[2020-12-18] MEDS: ARIPiprazole 10 MG TABLET PO SCH (07:41)
[2020-12-18] MEDS: Aspirin 325 MG TABLET PO SCH ×2 (07:41→20:34)
[2020-12-18] MEDS: Vancomycin 1,250 MG/262.5 ML IV.SOLN IVPB SCH (10:15)
[2020-12-18] MEDS: Vancomycin 1,500 MG/265 ML IV.SOLN IVPB SCH (22:51)
[2020-12-19] MEDS: Piperacillin/Tazobactam 3.375 GM in 0.9 % Sodium Chloride Mini Bag 100 ML IVPB SCH ×4 (00:20→23:40)
[2020-12-19 04:55] LABS: Basophils # 0.1 K/mcL (0.0-0.2); Basophils % 0.4 %; Eosinophils # 0.1 K/mcL (0.0-0.6); Eosinophils % 0.6 %; Hematocrit 46.3 % (37.5-50.1); Hemoglobin 14.6 g/dL (12.9-16.9); Immature Granulocytes % 0.6 % (0-4); Lymphocytes # 2.5 K/mcL (0.6-4.6); Lymphocytes % 11.2 %; Mean Corpuscular HGB Conc 31.5 g/dL (31.6-35.5); Mean Corpuscular Hemoglobin 27.2 pg (28.0-33.3); Mean Corpuscular Volume 86.4 fL (83.0-100.0); Mean Platelet Volume 10.3 fL (9.4-12.4); Monocytes # 1.9 K/mcL (0.0-1.3); Monocytes % 8.3 %; Neutrophils # 17.7 K/mcL (1.6-8.9); Platelet Count 308 K/mcL (140-400); Red Blood Count 5.36 M/mcL (4.19-5.50); Red Cell Distribution Width 14.6 % (11.5-14.5); Segmented Neutrophils % 78.9 %; White Blood Count 22.5 K/mcL (4.3-11.1)
[2020-12-19 05:39] LABS: BUN/Creatinine Ratio 18 (6-26); Blood Urea Nitrogen 20 mg/dL (6-20); Calcium 8.6 mg/dL (8.6-10.3); Carbon Dioxide 26 mEq/L (23-29); Chloride 103 mEq/L (98-107); Glucose 142 mg/dL (70-105); Magnesium 1.8 mg/dL (1.6-2.6); Osmolality,Calculated 295 (280-300); Potassium 4.4 mEq/L (3.5-5.1); Sodium 140 mEq/L (136-145); eGFR For African Americans > 60 (> 60); eGFR For Non-African Americans > 60 (> 60)
[2020-12-19] MEDS: Colchicine 0.6 MG TABLET PO SCH ×2 (07:29→20:05)
[2020-12-19] MEDS: Aspirin 325 MG TABLET PO SCH ×2 (07:29→20:05)
[2020-12-19] MEDS: ARIPiprazole 10 MG TABLET PO SCH (07:30)
[2020-12-19] MEDS ORDERED: *HR* Metoprolol 5 MG/5 ML VIAL IVP ONE ×3 (08:31→11:24)
[2020-12-19] MEDS: *HR* Ticagrelor 90 MG TABLET PO SCH ×2 (08:39→20:05)
[2020-12-19] MEDS: Vancomycin 1,500 MG/265 ML IV.SOLN IVPB SCH ×2 (10:01→21:57)
[2020-12-19 14:28] LABS: Adenovirus Not Detected (Not Detect); Bordetella Pertussis Not Detected (Not Detect); Chlamydophila pneumoniae Not Detected (Not Detect); Coronavirus 229E Not Detected (Not Detect); Coronavirus HKU1 Not Detected (Not Detect); Coronavirus NL63 Not Detected (Not Detect); Coronavirus OC43 Not Detected (Not Detect); Human Metapneumovirus Not Detected (Not Detect); Human Rhinovirus/Enterovirus Not Detected (Not Detect); Influenza A Subtype 2009 H1 Not Detected (Not Detect); Influenza B Not Detected (Not Detect); Mycoplasma pneumoniae Not Detected (Not Detect); Parainfluenza Virus 1 Not Detected (Not Detect); Parainfluenza Virus 2 Not Detected (Not Detect); Parainfluenza Virus 3 Not Detected (Not Detect); Parainfluenza Virus 4 Not Detected (Not Detect); Respiratory Syncytial Virus Not Detected (Not Detect); SARS-CoV-2 Not Detected (Not Detect)
[2020-12-20 04:21] LABS: Hematocrit 42.6 % (37.5-50.1); Hemoglobin 13.7 g/dL (12.9-16.9); Mean Corpuscular HGB Conc 32.2 g/dL (31.6-35.5); Mean Corpuscular Hemoglobin 27.3 pg (28.0-33.3); Mean Platelet Volume 10.4 fL (9.4-12.4); Platelet Count 301 K/mcL (140-400); Red Blood Count 5.01 M/mcL (4.19-5.50); Red Cell Distribution Width 14.5 % (11.5-14.5); White Blood Count 17.9 K/mcL (4.3-11.1)
[2020-12-20 05:07] LABS: BUN/Creatinine Ratio 19 (6-26); Blood Urea Nitrogen 19 mg/dL (6-20); Calcium 8.2 mg/dL (8.6-10.3); Carbon Dioxide 23 mEq/L (23-29); Chloride 99 mEq/L (98-107); Glucose 111 mg/dL (70-105); Magnesium 1.8 mg/dL (1.6-2.6); Osmolality,Calculated 279 (280-300); Potassium 3.7 mEq/L (3.5-5.1); Sodium 133 mEq/L (136-145); eGFR For African Americans > 60 (> 60); eGFR For Non-African Americans > 60 (> 60)
[2020-12-20] MEDS: ARIPiprazole 10 MG TABLET PO SCH (08:45)
[2020-12-20] MEDS: Colchicine 0.6 MG TABLET PO SCH ×2 (08:46→20:14)
[2020-12-20] MEDS: *HR* Ticagrelor 90 MG TABLET PO SCH ×2 (08:46→21:27)
[2020-12-20] MEDS: lisinopriL 5 MG TABLET PO SCH (08:46)
[2020-12-20] MEDS: Aspirin 325 MG TABLET PO SCH ×2 (08:46→20:14)
[2020-12-20] MEDS: Piperacillin/Tazobactam 3.375 GM in 0.9 % Sodium Chloride Mini Bag 100 ML IVPB SCH ×2 (08:46→16:23)
[2020-12-20] MEDS: Vancomycin 1,500 MG/265 ML IV.SOLN IVPB SCH ×2 (10:50→21:25)
[2020-12-20] MEDS: Levalbuterol Neb 1.25 MG/3 ML IH SCH ×2 (16:28→22:59)
[2020-12-21] MEDS: Piperacillin/Tazobactam 3.375 GM in 0.9 % Sodium Chloride Mini Bag 100 ML IVPB SCH ×3 (01:00→15:27)
[2020-12-21 02:52] LABS: Hematocrit 42.4 % (37.5-50.1); Hemoglobin 13.4 g/dL (12.9-16.9); Mean Corpuscular HGB Conc 31.6 g/dL (31.6-35.5); Mean Corpuscular Hemoglobin 27.3 pg (28.0-33.3); Mean Corpuscular Volume 86.4 fL (83.0-100.0); Mean Platelet Volume 10.6 fL (9.4-12.4); Platelet Count 299 K/mcL (140-400); Red Blood Count 4.91 M/mcL (4.19-5.50); Red Cell Distribution Width 14.6 % (11.5-14.5); White Blood Count 12.3 K/mcL (4.3-11.1)
[2020-12-21 03:20] LABS: BUN/Creatinine Ratio 17 (6-26); Blood Urea Nitrogen 16 mg/dL (6-20); Calcium 8.1 mg/dL (8.6-10.3); Carbon Dioxide 23 mEq/L (23-29); Chloride 103 mEq/L (98-107); Glucose 118 mg/dL (70-105); Osmolality,Calculated 280 (280-300); Potassium 3.5 mEq/L (3.5-5.1); Sodium 134 mEq/L (136-145); eGFR For African Americans > 60 (> 60); eGFR For Non-African Americans > 60 (> 60)
[2020-12-21] MEDS: Levalbuterol Neb 1.25 MG/3 ML IH SCH ×4 (04:05→21:38)
[2020-12-21] MEDS: Colchicine 0.6 MG TABLET PO SCH ×2 (07:48→20:53)
[2020-12-21] MEDS: ARIPiprazole 10 MG TABLET PO SCH (07:48)
[2020-12-21] MEDS: *HR* Ticagrelor 90 MG TABLET PO SCH ×2 (07:48→20:53)
[2020-12-21] MEDS: Aspirin 325 MG TABLET PO SCH ×2 (07:48→20:53)
[2020-12-21] MEDS: lisinopriL 5 MG TABLET PO SCH (07:49)
[2020-12-21 09:06] LABS: Basophils # 0.1 K/mcL (0.0-0.2); Basophils % 0.6 %; Eosinophils # 0.5 K/mcL (0.0-0.6); Eosinophils % 3.9 %; Immature Granulocytes % 0.3 % (0-4); Lymphocytes # 2.1 K/mcL (0.6-4.6); Lymphocytes % 16.6 %; Monocytes # 1.1 K/mcL (0.0-1.3); Monocytes % 8.6 %; Neutrophils # 8.7 K/mcL (1.6-8.9)
[2020-12-21] MEDS: Vancomycin 1,500 MG/265 ML IV.SOLN IVPB SCH ×2 (11:41→22:24)
[2020-12-21] MEDS ORDERED: *HR* Enoxaparin 40 MG/0.4 ML SYRINGE SQ ONE (12:47)
[2020-12-21] MEDS: Isosorbide MONOnitrate (24 HR) 30 MG TAB.ER.24H PO SCH (15:27)
[2020-12-21] MEDS: Spironolactone 12.5 MG TABLET PO SCH (15:27)
[2020-12-22] MEDS: Piperacillin/Tazobactam 3.375 GM in 0.9 % Sodium Chloride Mini Bag 100 ML IVPB SCH ×2 (00:52→07:58)
[2020-12-22] MEDS: Levalbuterol Neb 1.25 MG/3 ML IH SCH ×4 (03:58→21:56)
[2020-12-22] MEDS: *HR* Enoxaparin 40 MG/0.4 ML SYRINGE SQ SCH (05:04)
[2020-12-22] MEDS: ARIPiprazole 10 MG TABLET PO SCH (07:59)
[2020-12-22] MEDS: Isosorbide MONOnitrate (24 HR) 30 MG TAB.ER.24H PO SCH (07:59)
[2020-12-22] MEDS: Colchicine 0.6 MG TABLET PO SCH ×2 (07:59→20:50)
[2020-12-22] MEDS: Spironolactone 12.5 MG TABLET PO SCH (07:59)
[2020-12-22] MEDS: lisinopriL 5 MG TABLET PO SCH (07:59)
[2020-12-22] MEDS: *HR* Ticagrelor 90 MG TABLET PO SCH ×2 (07:59→20:51)
[2020-12-22] MEDS: Aspirin 325 MG TABLET PO SCH ×2 (07:59→20:49)
[2020-12-22 08:52] LABS: Hematocrit 43.3 % (37.5-50.1); Hemoglobin 13.9 g/dL (12.9-16.9); Mean Corpuscular HGB Conc 32.1 g/dL (31.6-35.5); Mean Corpuscular Hemoglobin 27.7 pg (28.0-33.3); Mean Corpuscular Volume 86.4 fL (83.0-100.0); Mean Platelet Volume 10.7 fL (9.4-12.4); Platelet Count 311 K/mcL (140-400); Red Blood Count 5.01 M/mcL (4.19-5.50); Red Cell Distribution Width 14.5 % (11.5-14.5); White Blood Count 7.5 K/mcL (4.3-11.1)
[2020-12-22 09:15] LABS: BUN/Creatinine Ratio 15 (6-26); Blood Urea Nitrogen 14 mg/dL (6-20); Calcium 8.7 mg/dL (8.6-10.3); Carbon Dioxide 24 mEq/L (23-29); Chloride 106 mEq/L (98-107); Glucose 118 mg/dL (70-105); Osmolality,Calculated 290 (280-300); Potassium 3.6 mEq/L (3.5-5.1); Sodium 139 mEq/L (136-145); eGFR For African Americans > 60 (> 60); eGFR For Non-African Americans > 60 (> 60)
[2020-12-22] MEDS: Vancomycin 1,500 MG/265 ML IV.SOLN IVPB SCH (10:25)
[2020-12-22] MEDS: Metoprolol XL (24 HR) Succ 25 MG TAB.ER.24H PO SCH (20:49)
[2020-12-22] MEDS: Doxycycline 100 MG CAPSULE PO SCH (20:49)
[2020-12-23] MEDS: Levalbuterol Neb 1.25 MG/3 ML IH SCH ×2 (03:39→10:32)
[2020-12-23] MEDS: *HR* Enoxaparin 40 MG/0.4 ML SYRINGE SQ SCH (06:08)
[2020-12-23 06:38] VITALS: BP 133/95; PULSE 82; TEMP 98.7; O2SAT 95
[2020-12-23] MEDS: ARIPiprazole 10 MG TABLET PO SCH (08:08)
[2020-12-23] MEDS: lisinopriL 5 MG TABLET PO SCH (08:08)
[2020-12-23] MEDS: Isosorbide MONOnitrate (24 HR) 30 MG TAB.ER.24H PO SCH (08:08)
[2020-12-23] MEDS: Metoprolol XL (24 HR) Succ 25 MG TAB.ER.24H PO SCH (08:08)
[2020-12-23] MEDS: Colchicine 0.6 MG TABLET PO SCH (08:08)
[2020-12-23] MEDS: Doxycycline 100 MG CAPSULE PO SCH (08:08)
[2020-12-23] MEDS: *HR* Ticagrelor 90 MG TABLET PO SCH (08:09)
[2020-12-23] MEDS: Aspirin 325 MG TABLET PO SCH (08:09)
[2020-12-23] MEDS: Spironolactone 12.5 MG TABLET PO SCH (08:09)
== END 2020-12-23 10:49 | disposition home or self-care (01) ==
LOC: 2NNU → SUATTDRO 16:19 → 3BNU 12-22 14:14
PROVIDERS: ADMIT Internal Medicine; ATTEND Family Medicine

== ENCOUNTER 2021-09-23 11:49 | Inpatient (IN) ==
[2021-09-23] MEDS ORDERED: Naloxone 0.4 MG/ML INJ IVP PRN (14:24)
[2021-09-23] MEDS ORDERED: Ipratropium/Albuterol Neb 3 ML IH PRN (14:27)
[2021-09-23] MEDS ORDERED: Dextrose 4 GM Chewable Tablets PO PRN ×2 (14:29)
[2021-09-23] MEDS ORDERED: D5% in Water 1,000 ML IVC PRN (14:29)
[2021-09-23] MEDS ORDERED: *HR* Dextrose 50 % in Water (Syg) 50 ML SYRINGE IVP PRN (14:29)
[2021-09-23] MEDS: Insulin LISPRO 300 UNITS/3 ML VIAL SUBQ SCH (17:20)
[2021-09-23] MEDS: MethylPREDNISolone 40 MG/ML VIAL IVP SCH ×2 (17:20→23:31)
[2021-09-23] MEDS: Nicotine 21 MG PATCH.TD24 TD SCH (19:48)
[2021-09-23] MEDS ORDERED: cefTRIAXone 2,000 MG in 0.9 % Sodium Chloride 20 ML IVP SCH (20:00)
[2021-09-23] MEDS ORDERED: Insulin LISPRO 300 UNITS/3 ML VIAL SUBQ SCH (21:00)
[2021-09-24 04:03] LABS: Basophils % 0.1 %; Hemoglobin 17.6 g/dL (12.9-16.9); Immature Granulocytes % 0.7 % (0-4); Lymphocytes # 1.5 K/mcL (0.6-4.6); Lymphocytes % 9.1 %; Mean Corpuscular HGB Conc 31.8 g/dL (31.6-35.5); Mean Corpuscular Hemoglobin 28.7 pg (28.0-33.3); Mean Corpuscular Volume 90.4 fL (83.0-100.0); Mean Platelet Volume 12.1 fL (9.4-12.4); Monocytes # 0.4 K/mcL (0.0-1.3); Monocytes % 2.1 %; Neutrophils # 14.9 K/mcL (1.6-8.9); Platelet Count 197 K/mcL (140-400); Red Blood Count 6.13 M/mcL (4.19-5.50); Red Cell Distribution Width 13.5 % (11.5-14.5); White Blood Count 16.9 K/mcL (4.3-11.1)
[2021-09-24 04:04] LABS: Hematocrit 55.4 % (37.5-50.1)
[2021-09-24 04:22] LABS: BUN/Creatinine Ratio 15 (6-26); Blood Urea Nitrogen 17 mg/dL (6-20); Calcium 9.3 mg/dL (8.6-10.3); Carbon Dioxide 26 mEq/L (23-29); Chloride 102 mEq/L (98-107); Glucose 225 mg/dL (70-105); Osmolality,Calculated 295 (280-300); Potassium 3.8 mEq/L (3.5-5.1); Sodium 138 mEq/L (136-145); eGFR For African Americans > 60 (> 60); eGFR For Non-African Americans > 60 (> 60)
[2021-09-24] MEDS: Azithromycin 500 MG in 0.9 % Sodium Chloride 250 ML IVPB SCH (08:53)
[2021-09-24] MEDS: MethylPREDNISolone 40 MG/ML VIAL IVP SCH ×3 (08:53→23:36)
[2021-09-24] MEDS: Insulin LISPRO 300 UNITS/3 ML VIAL SUBQ SCH ×3 (08:54→17:53)
[2021-09-24] MEDS ORDERED: Insulin LISPRO 300 UNITS/3 ML VIAL SUBQ SCH (08:58)
[2021-09-24] MEDS ORDERED: Perflutren Lipid Microsphere 1.3 ML in 0.9 % Sodium Chloride 8.7 ML IVP PRN (09:29)
[2021-09-24] MEDS: Budesonide/Formoterol 160/4.5 1 PUFF INH IH SCH ×2 (11:22→20:02)
[2021-09-24] MEDS: Ipratropium/Albuterol Neb 3 ML IH SCH ×4 (11:22→23:30)
[2021-09-24] MEDS: Furosemide 40 MG TABLET PO SCH (12:22)
[2021-09-24] MEDS: carvediloL 25 MG TABLET PO SCH ×2 (15:50→20:48)
[2021-09-24] MEDS: Gabapentin 300 MG CAPSULE PO SCH ×2 (15:50→20:33)
[2021-09-24] MEDS: *HR* Ticagrelor 90 MG TABLET PO SCH (20:33)
[2021-09-24] MEDS: Nicotine 21 MG PATCH.TD24 TD SCH (20:33)
[2021-09-25 01:03] LABS: Basophils % 0.1 %; Hematocrit 51.6 % (37.5-50.1); Hemoglobin 17.2 g/dL (12.9-16.9); Immature Granulocytes % 0.9 % (0-4); Lymphocytes # 1.5 K/mcL (0.6-4.6); Lymphocytes % 7.3 %; Mean Corpuscular HGB Conc 33.3 g/dL (31.6-35.5); Mean Corpuscular Hemoglobin 29.2 pg (28.0-33.3); Mean Corpuscular Volume 87.6 fL (83.0-100.0); Mean Platelet Volume 11.6 fL (9.4-12.4); Monocytes # 0.8 K/mcL (0.0-1.3); Neutrophils # 18.2 K/mcL (1.6-8.9); Platelet Count 193 K/mcL (140-400); Red Blood Count 5.89 M/mcL (4.19-5.50); Red Cell Distribution Width 13.6 % (11.5-14.5); Segmented Neutrophils % 87.7 %; White Blood Count 20.8 K/mcL (4.3-11.1)
[2021-09-25 01:18] LABS: BUN/Creatinine Ratio 22 (6-26); Blood Urea Nitrogen 26 mg/dL (6-20); Calcium 8.9 mg/dL (8.6-10.3); Carbon Dioxide 25 mEq/L (23-29); Chloride 102 mEq/L (98-107); Glucose 224 mg/dL (70-105); Osmolality,Calculated 294 (280-300); Phosphorous 2.4 mg/dL (2.7-4.5); Sodium 136 mEq/L (136-145); eGFR For African Americans > 60 (> 60); eGFR For Non-African Americans > 60 (> 60)
[2021-09-25] MEDS: Ipratropium/Albuterol Neb 3 ML IH SCH ×6 (03:51→23:32)
[2021-09-25] MEDS: Budesonide/Formoterol 160/4.5 1 PUFF INH IH SCH ×2 (07:32→20:20)
[2021-09-25] MEDS: *HR* Ticagrelor 90 MG TABLET PO SCH ×2 (07:52→20:00)
[2021-09-25] MEDS: Insulin LISPRO 300 UNITS/3 ML VIAL SUBQ SCH ×3 (07:52→16:59)
[2021-09-25] MEDS: carvediloL 25 MG TABLET PO SCH ×2 (07:52→16:59)
[2021-09-25] MEDS: Gabapentin 300 MG CAPSULE PO SCH ×3 (07:52→20:00)
[2021-09-25] MEDS: MethylPREDNISolone 40 MG/ML VIAL IVP SCH (07:52)
[2021-09-25] MEDS: Furosemide 40 MG TABLET PO SCH (07:52)
[2021-09-25] MEDS: Azithromycin 500 MG in 0.9 % Sodium Chloride 250 ML IVPB SCH (10:11)
[2021-09-25] MEDS ORDERED: MethylPREDNISolone 40 MG/ML VIAL IVP SCH (20:00)
[2021-09-25] MEDS: Nicotine 21 MG PATCH.TD24 TD SCH (20:00)
[2021-09-25] MEDS ORDERED: Insulin LISPRO 300 UNITS/3 ML VIAL SUBQ SCH (21:00)
[2021-09-26] MEDS: Ipratropium/Albuterol Neb 3 ML IH SCH ×3 (04:19→11:20)
[2021-09-26 05:43] LABS: Basophils % 0.2 %; Hematocrit 51.2 % (37.5-50.1); Hemoglobin 16.8 g/dL (12.9-16.9); Immature Granulocytes % 2.1 % (0-4); Lymphocytes # 1.6 K/mcL (0.6-4.6); Lymphocytes % 9.7 %; Mean Corpuscular HGB Conc 32.8 g/dL (31.6-35.5); Mean Corpuscular Hemoglobin 28.9 pg (28.0-33.3); Mean Corpuscular Volume 88.1 fL (83.0-100.0); Mean Platelet Volume 11.9 fL (9.4-12.4); Monocytes # 0.6 K/mcL (0.0-1.3); Monocytes % 3.9 %; Neutrophils # 13.7 K/mcL (1.6-8.9); Platelet Count 194 K/mcL (140-400); Red Blood Count 5.81 M/mcL (4.19-5.50); Red Cell Distribution Width 13.3 % (11.5-14.5); Segmented Neutrophils % 84.1 %; White Blood Count 16.3 K/mcL (4.3-11.1)
[2021-09-26 06:06] LABS: BUN/Creatinine Ratio 28 (6-26); Blood Urea Nitrogen 32 mg/dL (6-20); Calcium 8.6 mg/dL (8.6-10.3); Carbon Dioxide 23 mEq/L (23-29); Chloride 105 mEq/L (98-107); Glucose 216 mg/dL (70-105); Magnesium 2.1 mg/dL (1.6-2.6); Osmolality,Calculated 297 (280-300); Sodium 137 mEq/L (136-145); eGFR For African Americans > 60 (> 60); eGFR For Non-African Americans > 60 (> 60)
[2021-09-26 07:21] VITALS: TEMP 98.4
[2021-09-26] MEDS: Budesonide/Formoterol 160/4.5 1 PUFF INH IH SCH (07:45)
[2021-09-26 07:48] VITALS: O2SAT 94
[2021-09-26] MEDS: *HR* Ticagrelor 90 MG TABLET PO SCH (08:03)
[2021-09-26] MEDS: Furosemide 40 MG TABLET PO SCH (08:03)
[2021-09-26] MEDS: Gabapentin 300 MG CAPSULE PO SCH (08:03)
[2021-09-26] MEDS: carvediloL 25 MG TABLET PO SCH (08:03)
[2021-09-26] MEDS: Insulin LISPRO 300 UNITS/3 ML VIAL SUBQ SCH (08:11)
[2021-09-26] MEDS ORDERED: predniSONE 20 MG TABLET PO SCH (09:00)
[2021-09-26 10:01] VITALS: PULSE 80
[2021-09-26 10:15] VITALS: BP 142/88
[2021-09-26] MEDS: Azithromycin 500 MG in 0.9 % Sodium Chloride 250 ML IVPB SCH (10:45)
== END 2021-09-26 11:00 | disposition home or self-care (01) | DRG 140 ==
LOC: 3NENU → SUATTDRO 13:27
PROVIDERS: ADMIT Internal Medicine; ATTEND Internal Medicine

== ENCOUNTER 2022-02-16 11:40 | Observation (INO) ==
[2022-02-16] MEDS ORDERED: Naloxone 0.4 MG/ML INJ IVP PRN (15:57)
[2022-02-16] MEDS ORDERED: Ondansetron ODT 4 MG TAB.RAPDIS SL PRN (15:57)
[2022-02-16] MEDS ORDERED: *HR* Dextrose 50 % in Water (Syg) 50 ML SYRINGE IVP PRN (16:00)
[2022-02-16] MEDS ORDERED: Dextrose Gel 15 GM/37.5 ML TUBE PO PRN ×2 (16:00)
[2022-02-16] MEDS ORDERED: D5% in Water 1,000 ML IVC PRN (16:00)
[2022-02-16 16:19] LABS: Calcium 7.7 mg/dL (8.6-10.3); Magnesium 1.2 mg/dL (1.6-2.6); Potassium 3.4 mEq/L (3.5-5.1); Troponin I 0.03 ng/mL (< 0.04)
[2022-02-16] MEDS: Insulin LISPRO 300 UNITS/3 ML VIAL SUBQ SCH ×2 (16:48→21:09)
[2022-02-16] MEDS: Nicotine 21 MG PATCH.TD24 TD SCH (17:21)
[2022-02-16] MEDS: Acetaminophen 325 MG TABLET PO PRN (18:15)
[2022-02-16 19:13] LABS: Adenovirus Not Detected (Not Detect); Coronavirus 229E Not Detected (Not Detect); Coronavirus HKU1 Not Detected (Not Detect); Coronavirus NL63 Not Detected (Not Detect)
[2022-02-16 19:14] LABS: Bordetella Pertussis Not Detected (Not Detect); Chlamydophila pneumoniae Not Detected (Not Detect); Coronavirus OC43 Not Detected (Not Detect); Human Metapneumovirus Not Detected (Not Detect); Human Rhinovirus/Enterovirus Not Detected (Not Detect); Influenza A Subtype 2009 H1 Not Detected (Not Detect); Influenza B Not Detected (Not Detect); Mycoplasma pneumoniae Not Detected (Not Detect); Parainfluenza Virus 1 Not Detected (Not Detect); Parainfluenza Virus 2 Not Detected (Not Detect); Parainfluenza Virus 3 Not Detected (Not Detect); Parainfluenza Virus 4 Not Detected (Not Detect); Respiratory Syncytial Virus Not Detected (Not Detect); SARS-CoV-2 Not Detected (Not Detect)
[2022-02-16] MEDS: *HR* Ticagrelor 90 MG TABLET PO SCH (21:19)
[2022-02-16] MEDS: *HR* Heparin 5,000 UNIT/ML VIAL SQ SCH (21:19)
[2022-02-16] MEDS: Gabapentin 300 MG CAPSULE PO SCH (21:19)
[2022-02-16] MEDS ORDERED: Calcium Gluconate 1gm/50mL 1 GM/50 ML BAG IVPB ONE (21:39)
[2022-02-16] MEDS ORDERED: Vancomycin 1,500 MG/265 ML IV.SOLN IVPB ONE (23:00)
[2022-02-16] MEDS: Budesonide/Formoterol 160/4.5 1 PUFF INH IH SCH (23:17)
[2022-02-17] MEDS: Cefepime HCl 2,000 MG in 0.9 % Sodium Chloride Mini Bag 100 ML IVPB SCH ×4 (00:22→23:58)
[2022-02-17 02:29] LABS: Basophils # 0.1 K/mcL (0.0-0.2); Basophils % 0.4 %; Eosinophils # 0.3 K/mcL (0.0-0.6); Eosinophils % 1.9 %; Hematocrit 52.6 % (37.5-50.1); Hemoglobin 17.3 g/dL (12.9-16.9); Immature Granulocytes % 0.4 % (0-4); Lymphocytes # 2.1 K/mcL (0.6-4.6); Lymphocytes % 15.5 %; Mean Corpuscular HGB Conc 32.9 g/dL (31.6-35.5); Mean Corpuscular Hemoglobin 28.9 pg (28.0-33.3); Mean Platelet Volume 11.3 fL (9.4-12.4); Monocytes # 1.1 K/mcL (0.0-1.3); Monocytes % 7.9 %; Neutrophils # 9.9 K/mcL (1.6-8.9); Platelet Count 160 K/mcL (140-400); Red Blood Count 5.98 M/mcL (4.19-5.50); Red Cell Distribution Width 13.2 % (11.5-14.5); Segmented Neutrophils % 73.9 %; White Blood Count 13.4 K/mcL (4.3-11.1)
[2022-02-17 02:48] LABS: Calcium 8.8 mg/dL (8.6-10.3); Potassium 4.1 mEq/L (3.5-5.1)
[2022-02-17 02:49] LABS: Phosphorous 2.9 mg/dL (2.7-4.5)
[2022-02-17 03:03] LABS: Thyroid Stimulating Hormone 0.688 mcIU/mL (0.340-5.600)
[2022-02-17 03:14] LABS: Folate 14.4 ng/mL (3.0-16.0)
[2022-02-17] MEDS ORDERED: GuaiFENesin Liq 200 MG/10 ML UDC PO PRN (04:10)
[2022-02-17] MEDS ORDERED: Menthol 1 EACH LOZENGE PO PRN (04:10)
[2022-02-17] MEDS ORDERED: Chloraseptic Spray 177 ML BOTTLE MM PRN (04:11)
[2022-02-17] MEDS: *HR* Heparin 5,000 UNIT/ML VIAL SQ SCH ×3 (05:49→19:50)
[2022-02-17] MEDS: Nicotine 21 MG PATCH.TD24 TD SCH (08:33)
[2022-02-17] MEDS: Gabapentin 300 MG CAPSULE PO SCH ×3 (08:33→19:49)
[2022-02-17] MEDS: Metoprolol XL (24 HR) Succ 25 MG TAB.ER.24H PO SCH (08:33)
[2022-02-17] MEDS: *HR* Ticagrelor 90 MG TABLET PO SCH ×2 (08:33→19:50)
[2022-02-17] MEDS: Insulin LISPRO 300 UNITS/3 ML VIAL SUBQ SCH ×4 (08:34→19:50)
[2022-02-17] MEDS: Budesonide/Formoterol 160/4.5 1 PUFF INH IH SCH ×2 (10:40→20:49)
[2022-02-17] MEDS: Cyanocobalamin (B-12) 1,000 MCG TABLET PO SCH (11:28)
[2022-02-17] MEDS: Vancomycin 1,250 MG/262.5 ML IV.SOLN IVPB SCH ×2 (11:28→22:25)
[2022-02-17] MEDS: Acetaminophen 325 MG TABLET PO PRN (19:49)
[2022-02-18] MEDS: *HR* Heparin 5,000 UNIT/ML VIAL SQ SCH ×2 (05:09→13:47)
[2022-02-18 06:15] LABS: Basophils # 0.1 K/mcL (0.0-0.2); Basophils % 0.6 %; Eosinophils # 0.4 K/mcL (0.0-0.6); Hematocrit 51.6 % (37.5-50.1); Immature Granulocytes % 0.5 % (0-4); Lymphocytes # 2.2 K/mcL (0.6-4.6); Lymphocytes % 26.8 %; Mean Corpuscular HGB Conc 32.9 g/dL (31.6-35.5); Mean Corpuscular Hemoglobin 29.4 pg (28.0-33.3); Mean Corpuscular Volume 89.1 fL (83.0-100.0); Mean Platelet Volume 11.3 fL (9.4-12.4); Monocytes # 0.8 K/mcL (0.0-1.3); Monocytes % 9.6 %; Neutrophils # 4.8 K/mcL (1.6-8.9); Platelet Count 171 K/mcL (140-400); Red Blood Count 5.79 M/mcL (4.19-5.50); Segmented Neutrophils % 57.5 %; White Blood Count 8.3 K/mcL (4.3-11.1)
[2022-02-18 06:28] LABS: Calcium 9.2 mg/dL (8.6-10.3); Magnesium 1.9 mg/dL (1.6-2.6); Potassium 4.1 mEq/L (3.5-5.1)
[2022-02-18 06:42] VITALS: BP 134/87; PULSE 79; TEMP 98.2
[2022-02-18] MEDS: Budesonide/Formoterol 160/4.5 1 PUFF INH IH SCH (07:38)
[2022-02-18 07:42] VITALS: O2SAT 95
[2022-02-18] MEDS: Nicotine 21 MG PATCH.TD24 TD SCH (08:51)
[2022-02-18] MEDS: Cyanocobalamin (B-12) 1,000 MCG TABLET PO SCH (08:52)
[2022-02-18] MEDS: *HR* Ticagrelor 90 MG TABLET PO SCH (08:52)
[2022-02-18] MEDS: Metoprolol XL (24 HR) Succ 25 MG TAB.ER.24H PO SCH (08:52)
[2022-02-18] MEDS: Gabapentin 300 MG CAPSULE PO SCH (08:52)
[2022-02-18] MEDS: Insulin LISPRO 300 UNITS/3 ML VIAL SUBQ SCH ×2 (08:53→13:47)
[2022-02-18] MEDS: Cefepime HCl 2,000 MG in 0.9 % Sodium Chloride Mini Bag 100 ML IVPB SCH (08:58)
[2022-02-18] MEDS ORDERED: levoFLOXacin 750 MG TABLET PO SCH (09:15)
== END 2022-02-18 14:12 | disposition home or self-care (01) ==
LOC: 3BNU → PREINTOOBSV 12:00 → SUATTDRO 14:59
PROVIDERS: ADMIT General Practice; ATTEND Internal Medicine